=== PATIENT | male | born 1995 | race Caucasian/White ===

== ENCOUNTER → 2018-04-03 21:01 | Emergency (ER) | payer OTHER, BC ==
[~2018-04-03 21:01] MED LIST: Ibuprofen TAB* 600 MG PO ONE; Omeprazole CAP (NF) 20 MG CAP.DR PO ONE
--- NOTE | 2018-04-03 21:24 | ED ---
HPI Chest Pain - HPI Summary HPI Summary: This patient is a 22 year old M presenting to [facility] with a chief complaint of left side CP that began at 1999. The patient rates the stabbing pain 6/10 in severity and states it radiates into his arm and neck. Patient reports cough. Patient denies recent illness. Pt states that he has GERD. Pt states the episode tonight was accompanied by lightheadedness. Pt reports hx of anxiety. He does not smoke and his grandparents do have CAD. 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 He denies SI, drug use, and alcohol use. - History of Current Complaint Chief Complaint: EDGeneral Time Seen by Provider: 04/03/18 21:15 Hx Obtained From: Patient Onset/Duration: Still Present Time of Onset: 20:00 Timing: Constant Initial Severity: Moderate Current Severity: Moderate Pain Intensity: 6 Pain Scale Used: 0-10 Numeric Chest Pain Location: Left Anterior Chest Pain Radiates: Yes Chest Pain Radiates To:: Arm, Neck Character: Sharp/Stabbing Associated Signs and Symptoms: Positive: Other: - hx of GERD and anxiety - Allergy/Home Medications Allergies/Adverse Reactions: Allergies Allergy/AdvReac Type Severity Reaction Status Date / Time No Known Allergies Allergy Verified 04/03/18 21:10 PMH/Surg Hx/FS Hx/Imm Hx Cardiovascular History: Denies: Hx Auto Implanted Cardiovert Defib, Hx Cardiac Arrest, Hx Deep Vein Thrombosis, Hx Embolism, Hx Hypotension, Hx Myocardial Infarction Respiratory History: Denies: Hx Chronic Bronchitis, Hx Chronic Obstructive Pulmonary Disease (COPD ), Hx Cystic Fibrosis GI History: Reports: Hx Gastroesophageal Reflux Disease Musculoskeletal History: Denies: Hx Bursitis, Hx Osteoporosis Neurological History: Denies: Hx Dementia, Hx Developmental Delay, Hx Headaches, Hx Spinal Cord Injury Psychiatric History: Reports: Hx Anxiety Infectious Disease History: No Infectious Disease History: Denies: Traveled Outside the US in Last 30 Days - Family History Known Family History: Positive: Cardiac Disease - Social History Occupation: Student Lives: Dormitory/Roommates Alcohol Use: None Hx Substance Use: No Substance Use Type: Reports: None Hx Tobacco Use: No Smoking Status (MU): Never Smoked Tobacco Review of Systems Negative: Fever, Chills Negative: Erythema Negative: Nasal Discharge Positive: Chest Pain Positive: Cough. Negative: Shortness Of Breath Negative: Abdominal Pain, Vomiting, Nausea Negative: dysuria, hematuria Negative: Myalgia, Edema Negative: Rash Neurological: Other - light headed ness Psychological: Other - NEGATIVE SI Positive: Anxious All Other Systems Reviewed And Are Negative: Yes Physical Exam - Summary Physical Exam Summary: Constitutional: Well-developed, Well-nourished, Alert. (-) Distressed Skin: Warm, Dry HENT: Normocephalic; Atraumatic Eyes: Conjunctiva normal Neck: Musculoskeletal ROM normal neck. (-) JVD, (-) Stridor, (-) Tracheal deviation Cardio: Rhythm regular, rate normal, Heart sounds normal; Intact distal pulses; The pedal pulses are 2+ and symmetric. Radial pulses are 2+ and symmetric. (-) Murmur Pulmonary/Chest wall: Effort normal. (-) Respiratory distress, (-) Wheezes, (-) Rales Abd: Soft, (-) epigastric tenderness, (-) Distension, (-) Guarding, (-) Rebound Musculoskeletal: (-) Edema, Costochondral tenderness at 5-6th space on the left that exactly reproduces his pain Lymph: (-) Cervical adenopathy Neuro: Alert, Oriented x3 Psych: Mood and affect Normal Triage Information Reviewed: Yes Vital Signs On Initial Exam: Initial Vitals Temp Pulse Resp BP Pulse Ox 98.6 F 74 16 150/93 99 04/03/18 21:05 04/03/18 21:05 04/03/18 21:05 04/03/18 21:05 04/03/18 21:05 Vital Signs Reviewed: Yes Diagnostics - Vital Signs Vital Signs Temp Pulse Resp BP Pulse Ox 04/03/18 21:05 98.6 F 74 16 150/93 99 - Laboratory Lab Statement: Any lab studies that have been ordered have been reviewed, and results considered in the medical decision making process. - EKG 2113 Cardiac Rate: NL EKG Rhythm: Sinus Rhythm - at 76 BPM Summary of EKG Findings: No STEMI Chest Pain Course/Dx - Course Assessment/Plan: This patient is a 22 year old M presenting to [facility] with a chief complaint of left side CP that began at 1999. The patient rates the stabbing pain 6/10 in severity and states it radiates into his arm and neck. Patient reports cough. Patient denies recent illness. Pt states that he has GERD. Pt states the episode tonight was accompanied by lightheadedness. Pt reports hx of anxiety. He does not smoke and his grandparents do have CAD. 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 He denies SI, drug use, and alcohol use. CARLOS ALBERTO score is 0. I do not suspect PE. An EKG reveals NSR. In the ED course the patient was given motrin and prilosec. Patient will be discharged and follow up from [facility]. The patient is agreeable with this plan. - Diagnoses Provider Diagnoses: Costochondritis Discharge - Sign-Out/Discharge Documenting (check all that apply): Patient Departure - Discharge Plan Condition: Stable Disposition: HOME Prescriptions: Ibuprofen TAB* [Motrin TAB* 600 MG] 600 mg PO Q6H PRN #30 tab PRN Reason: Pain - Severe Pantoprazole Sodium [Protonix] 40 mg PO DAILY #14 tab Patient Education Materials: Costochondritis (ED) Referrals: [facility] - [place] RAS[facility] [, APPLICATION, OTHER] - Additional Instructions: RETURN TO THE EMERGENCY DEPARTMENT FOR CHANGING OR WORSENING SYMPTOMS - Attestation Statements Document Initiated by Scribe: Yes Documenting Scribe: Bryant Palomares Provider For Whom Scribe is Documenting (Include Credential): Homer Pineda MD Scribe Attestation: Bryant Leslie , scribed for Homer Pineda MD on 04/03/18 at 2128.
[2018-04-03 21:48] VITALS: BP 133/69
== END | disposition home or self-care (01) ==
LOC: ED 21:01
DX: M94.0 Chondrocostal junction syndrome [Tietze] (principal); R07.9 Chest pain, unspecified; K21.9 Gastro-esophageal reflux disease without esophagitis; F41.9 Anxiety disorder, unspecified
CPT/HCPCS: 93005; 99282; A9270-GY

== ENCOUNTER 2018-09-16 19:08 | Emergency (ER) | payer OTHER, BC ==
--- OUTSIDE RECORDS SUMMARY | 2018-09-16 19:54 | XMS REPORT | Continuity of Care Document ---
:1995 External Reference #:[id number] Author Name Eun Nichols PA-C Address [address] [place] [address] Care Team Providers Name Role Phone Arron Perez MD Care Team Information Facilities And Grounds Director Unavailable Arron Perez MD Primary Care Physician Unavailable Payers Date Identification Numbers Payment Provider Subscriber Policy Number: [id number] [facility] Marleni Guzman Group Number: [id number] [address] PayID: [id number] [place] [address] Policy Number: [id number] [facility] OTTO Marquis Guzman PayID: [id number] [address] [address] [place] [address] Problems Active Problems Provider Date Gastro-esophageal reflux disease with Eun Nichols PA-C Onset: 08/20 esophagitis Digestive symptom Eun Nichols PA-C Onset: 05/19/2018 Flatulence, eructation and gas pain Eun Nichols PA-C Onset: 2018 Esophageal dysphagia Eun Nichols PA-C Onset: 05/19/2018 Gastroesophageal reflux disease Eun Nichols PA-C Onset: 05/19/2018 Chest pain Eun Nichols PA-C Onset: 05/19/2018 Family History Date Family Member(s) Observation Comments Mother Colon Polyps Children None Siblings zero Social History Type Date Description Comments Sex Unknown Tobacco Use Start: Unknown Patient has never smoked Smoking Status Reviewed: 08/20/18 Patient has never smoked Allergies, Adverse Reactions, Alerts Description No Known Drug Allergies Medications Active Medications SIG Qnty Indications Ordering Provider Date Pantoprazole Sodium 1 tab PO bid 60tabs Koko Lujan DO 06/11/[address] History Medications Pantoprazole Sodium 1 by mouth daily 30tabs R07.89 Day 05/19/2018 - at least 30min MD Narcisa 06/11/2018 40mg Tablets before breakfast Pantoprazole Sodium Take 1 Tablet By Unknown - Mouth Every Day 05/19/[address] Vital Signs Date Vital Result Comment 08/20/2018 10:25am Height 75 inches 6'3" Weight 148.00 lb BMI (Body Mass Index) 18.5 kg/m2 05/19/2018 9:22am Height 75 inches 6'3" Weight 146.00 lb BP Systolic 134 mmHg BP Diastolic 88 mmHg Heart Rate 79 /min BMI (Body Mass Index) 18.2 kg/m2 Results Test Date Facility Test Result H/L Range Note Laboratory test 06/11/2018 [facility] SEE RESULT 1, 2 finding BELOW Laboratory test 06/11/2018 [facility] SEE RESULT 3, 4 finding Interface Order BELOW 1 [id number] SEE RESULT BELOW Name: MARLENI GUZMAN : [address]: Koko Lujan DO Acct: [id number] Unit: [id number] AGE: 22 Location: [facility] Re06/11/18 SEX: M Status: DEP REF SPEC: [id number] TARAH: 06/11/18-[address] [facility] [address]: Koko Lujan DO REQ: [id number] RECD: 06/11/18 STATUS: TROEY HURLEY DR: [facility] - MR _ SOURCE: GAS ANTRUM SPDES: ORDERED: Clotest COMMENTS: [id number] Procedure Result Reported Site Clotest Final 06/12/18739 [facility] Clotest Negative * ML - Main Lab . END OF REPORT DEPARTMENT OF PATHOLOGY, [address] [place] [address] Moise Sousa M.D. Director [facility] # [id number] 3 [id number] 4 SEE RESULT BELOW Name: MARLENI GUZMAN : [address]: Koko Lujan DO Acct: [id number] Unit: [id number] AGE: 22 Location: [facility] Re06/11/18 SEX: M Status: DEP REF SPEC: [id number] TARAH: 06/11/18-[address]: Koko Lujan DO REQ: [id number] RECD: 06/11/18-155 STATUS: IAM HURLEY DR: Arron Perez MD _ ORDERED: LEVEL 4/3 COMMENTS: [id number] FINAL DIAGNOSIS 1. Duodenum, biopsy: -- Benign small intestinal mucosa with no significant pathologic abnormalities. -- No evidence of villous blunting or increased intraepithelial lymphocytes. 2. Esophagus, distal, biopsy: -- Benign squamous and columnar-type mucosa with chronic inflammation. -- Intestinal metaplasia is absent. -- Dysplasia is absent. 3. Esophagus, mid, biopsy: -- Benign squamous mucosa with mild erosive changes. -- No evidence of eosinophilic esophagitis. CLINICAL HISTORY Dysphagia; gastroesophageal reflux disease PRE-OPERATIVE DIAGNOSIS Rule out eosinophilic esophagitis POST-OPERATIVE DIAGNOSIS EGD: esophagus - LA - A loose 2 cm hiatal hernia; biopsy; mid biopsy; gastric - normal, THOMAS test; duodenum - normal biopsy CONTINUED ON NEXT PAGE DEPARTMENT OF PATHOLOGY, [address] [place] [address] Moise Sousa M.D. Director [facility] # [id number] RUN DATE: 06/12/18 [facility] LAB LIVE PAGE 2 Patient: MARLENI GUZMAN [id number] (Continued) GROSS DESCRIPTION (Continued) GROSS DESCRIPTION 1. The specimen is received in formalin labeled, Duodenal Biopsies, and consists of two le-pink irregular soft tissue fragments measuring 0.4 x 0.3 x 0.1 cm and 0.7 by up to 0.2 x 0.1 cm which are submitted entirely in one cassette. 2. The specimen is received in formalin labeled, Biopsy Distal Esophagus, and consists of two le-pink irregular soft tissue fragments averaging 0.3 x 0.2 x 0.1 cm which are submitted entirely in one cassette. 3. The specimen is received in formalin labeled, Biopsy Mid Esophagus, and consists of two translucent le-white irregular soft tissue fragments averaging 0.5 x 0.2 x 0.1 cm which are submitted entirely in one cassette. Signed by and Reported on: Zena Cadet MD 06/12/18 1227 END OF REPORT DEPARTMENT OF PATHOLOGY, [address] [place] [address] Moise Sousa M.D. Director [facility] # [id number] Procedures Date Code Description Status 06/11/2018 94566 Moderate Sedation Services; Same Phys Each Additional 15 Completed Mins 06/11/2018 19391 Moderate Sedation Services; Same Phys Intl 15 Mins; PT >=5 Completed Years 06/11/2018 55635 EGD+Biopsy Single Or Multiple Completed Encounters Type Date Location Provider Dx Diagnosis Office Visit 05/19/2018 Gastroenterology Eun Hdz R07.89 Other chest pain 9:30a [facility] COSTA Nichols K21.9 Gastro-esophageal reflux disease without esophagitis R13.14 Dysphagia, pharyngoesophageal phase R14.0 Abdominal distension (gaseous) R19.4 Change in bowel habit Plan of Treatment Future Appointment(s):09/22/2018 10:00 am - Eun Nichols PA-C at [facility]08/20/2018 - DON Turner CK21.0 Gastro-esophageal reflux disease with esophagitis
--- NOTE | 2018-09-16 20:57 | ED ---
Upper Extremity Pain - HPI Summary HPI Summary: This patient is a 23 year old male presenting to [facility] with a chief complaint of left hand weakness since 7 hours ago. The patient has no other medical complaints. - History of Current Complaint Chief Complaint: EDGeneral Stated Complaint: WEAKNESS ON LT SIDE PER PT Time Seen by Provider: 09/16/18 20:51 Hx Obtained From: Patient Onset/Duration: Started Hours Ago Timing: Constant Pain Location: Hand Associated Signs & Symptoms: Positive: Weakness - Allergies/Home Medications Allergies/Adverse Reactions: Allergies Allergy/AdvReac Type Severity Reaction Status Date / Time No Known Allergies Allergy Verified 09/16/18 19:37 PMH/Surg Hx/FS Hx/Imm Hx Cardiovascular History: Denies: Hx Auto Implanted Cardiovert Defib, Hx Cardiac Arrest, Hx Deep Vein Thrombosis, Hx Embolism, Hx Hypotension, Hx Myocardial Infarction Respiratory History: Denies: Hx Chronic Bronchitis, Hx Chronic Obstructive Pulmonary Disease (COPD ), Hx Cystic Fibrosis GI History: Reports: Hx Gastroesophageal Reflux Disease Musculoskeletal History: Denies: Hx Bursitis, Hx Osteoporosis Neurological History: Denies: Hx Dementia, Hx Developmental Delay, Hx Headaches, Hx Spinal Cord Injury Psychiatric History: Reports: Hx Anxiety Infectious Disease History: No Infectious Disease History: Denies: Traveled Outside the [place] in Last 30 Days - Family History Known Family History: Positive: Cardiac Disease - Social History Alcohol Use: None Hx Substance Use: No Substance Use Type: Reports: None Hx Tobacco Use: No Smoking Status (MU): Never Smoked Tobacco Review of Systems Negative: Fever Positive: Weakness All Other Systems Reviewed And Are Negative: Yes Physical Exam - Summary Physical Exam Summary: VITAL SIGNS: Reviewed. GENERAL: Patient is a well-developed and nourished MALE who is lying comfortable in the stretcher. Patient is not in any acute respiratory distress. HEAD AND FACE: No signs of trauma. No ecchymosis, hematomas or skull depressions. No sinus tenderness. EYES: PERRLA, EOMI x 2, No injected conjunctiva, no nystagmus. EARS: Hearing grossly intact. Ear canals and tympanic membranes are within normal limits. MOUTH: Oropharynx within normal limits. NECK: Supple, trachea is midline, no adenopathy, no JVD, no carotid bruit, no c- spine tenderness, neck with full ROM CHEST: Symmetric, no tenderness at palpation LUNGS: Clear to auscultation bilaterally. No wheezing or crackles. CVS: Regular rate and rhythm, S1 and S2 present, no murmurs or gallops appreciated. ABDOMEN: Soft, non-tender. No signs of distention. No rebound no guarding, and no masses palpated. Bowel sounds are normal. EXTREMITIES: FROM in all major joints, no edema, no cyanosis or clubbing. Patients motorsensory strength intact. NEURO: Alert and oriented x 3. No acute neurological deficits. Speech is normal and follows commands. SKIN: Dry and warm Triage Information Reviewed: Yes Vital Signs On Initial Exam: Initial Vitals Temp Pulse Resp BP Pulse Ox 99.6 F 74 16 122/90 98 09/16/18 19:25 09/16/18 19:25 09/16/18 19:25 09/16/18 19:25 09/16/18 19:25 Vital Signs Reviewed: Yes Diagnostics - Vital Signs Vital Signs Temp Pulse Resp BP Pulse Ox 09/16/18 20:23 70 130/85 96 09/16/18 19:25 99.6 F 74 16 122/90 98 - Laboratory Lab Statement: Any lab studies that have been ordered have been reviewed, and results considered in the medical decision making process. Course/Dx - Course Course Of Treatment: This patient is a 23 year old male presenting to [facility] with a chief complaint of left hand weakness. Physical exam was unremarkable for neurovascular problems. A plan for discharge was discussed with the patient and he was agreeable with this plan. - Diagnoses Provider Diagnoses: Anxiety Discharge - Sign-Out/Discharge Documenting (check all that apply): Patient Departure - Discharge Patient Received Moderate/Deep Sedation with Procedure: No - Discharge Plan Condition: Stable Disposition: HOME Patient Education Materials: Anxiety (ED) Referrals: [facility] - [place] [Primary Care Provider] - Additional Instructions: Return to ED with any new or worsening symptoms. - Billing Disposition and Condition Condition: STABLE Disposition: Home - Attestation Statements Document Initiated by Emyibmattie: Yes Documenting Scribe: Guillaume Medina Provider For Whom Jenn is Documenting (Include Credential): Merrill Petersen MD Scribe Attestation: Guillaume Leslie scribed for Merrill Petersen MD on 09/17/18 at 0645. Scribe Documentation Reviewed: Yes Provider Attestation: The documentation as recorded by the Guillaume jose accurately reflects the service I personally performed and the decisions made by me, Merrill Petersen MD Status of Scribe Document: Viewed
[2018-09-16 21:40] VITALS: BP 140/90
== END 2018-09-16 21:39 | disposition home or self-care (01) ==
LOC: ED 19:08
DX: F41.9 Anxiety disorder, unspecified (principal)
CPT/HCPCS: 93005; 99282

== ENCOUNTER 2019-03-30 20:32 | Emergency (ER) | payer OTHER, BC ==
[2019-03-30] MEDS ORDERED: Ondansetron INJ* 2 MG/ML VIAL IV ONE (21:15)
[2019-03-30] MEDS ORDERED: Ketorolac INJ* 30 MG/ML 1 ML VIAL IV PUSH ONE (21:15)
[2019-03-30 21:31] LABS: Hematocrit 45 % (42-52); Hemoglobin 15.7 g/dL (14.0-18.0); Mean Corpuscular HGB Conc 35 g/dL (31-36); Mean Corpuscular Hemoglobin 31 pg (27-31); Mean Corpuscular Volume 87 fL (80-94); Mean Platelet Volume 8.7 fL (7.4-10.4); Platelet Count 215 10^3/uL (150-450); Red Blood Count 5.13 10^6 /uL (4.18-5.48); Red Cell Distribution Width 13 % (10-15)
--- NOTE | 2019-03-30 21:32 | ED ---
GI/ HPI - HPI Summary HPI Summary: 23 year old male presents with nausea vomiting diarrhea for the past day. he states that he has lower abdominal pain. Denies any different. No recent trauma. Has not been camping. No one around him is sick. Has no medical conditions. He has not been able to keep anything down. He denies any chest pain or shortness breath. No cough. No sore throat. Denies any other symptoms. has not been on antibiotic recently. no fevers. - History of Current Complaint Chief Complaint: EDNauseaVomitDiarrh Time Seen by Provider: 03/30/19 20:59 Stated Complaint: VOMITING/DIARRHEA PER PT Pain Intensity: 4 - Allergy/Home Medications Allergies/Adverse Reactions: Allergies Allergy/AdvReac Type Severity Reaction Status Date / Time No Known Allergies Allergy Verified 03/30/19 20:36 PMH/Surg Hx/FS Hx/Imm Hx Endocrine/Hematology History: Denies: Hx Anticoagulant Therapy Cardiovascular History: Denies: Hx Auto Implanted Cardiovert Defib, Hx Cardiac Arrest, Hx Deep Vein Thrombosis, Hx Embolism, Hx Hypotension, Hx Myocardial Infarction Respiratory History: Denies: Hx Chronic Bronchitis, Hx Chronic Obstructive Pulmonary Disease (COPD ), Hx Cystic Fibrosis GI History: Reports: Hx Gastroesophageal Reflux Disease Musculoskeletal History: Denies: Hx Bursitis, Hx Osteoporosis Neurological History: Denies: Hx Dementia, Hx Developmental Delay, Hx Headaches, Hx Spinal Cord Injury Psychiatric History: Reports: Hx Anxiety Infectious Disease History: No Infectious Disease History: Denies: Traveled Outside the [place] in Last 30 Days - Family History Known Family History: Positive: Cardiac Disease - Social History Alcohol Use: Weekly Hx Substance Use: No Substance Use Type: Reports: None Hx Tobacco Use: No Smoking Status (MU): Never Smoked Tobacco Review of Systems Negative: Fever Negative: Chest Pain Negative: Shortness Of Breath Positive: Abdominal Pain, Vomiting, Diarrhea, Nausea All Other Systems Reviewed And Are Negative: Yes Physical Exam Triage Information Reviewed: Yes Vital Signs On Initial Exam: Initial Vitals Temp Pulse Resp BP Pulse Ox 98.4 F 132 16 135/90 99 03/30/19 20:35 03/30/19 20:35 03/30/19 20:35 03/30/19 20:35 03/30/19 20:35 Vital Signs Reviewed: Yes Appearance: Positive: Well-Appearing Skin: Positive: Warm, Dry Head/Face: Positive: Normal Head/Face Inspection Eyes: Positive: Normal, Conjunctiva Clear ENT: Positive: Pharynx normal Respiratory/Lung Sounds: Positive: Clear to Auscultation, Breath Sounds Present Cardiovascular: Positive: Normal, RRR Abdomen Description: Positive: Soft, Other: - diffuse abd tenderness Bowel Sounds: Positive: Present Musculoskeletal: Positive: Normal Neurological: Positive: Normal Psychiatric: Positive: Normal Procedures - Sedation Patient Received Moderate/Deep Sedation with Procedure: No Diagnostics - Vital Signs Vital Signs Temp Pulse Resp BP Pulse Ox 03/30/19 20:35 98.4 F 132 16 135/90 99 - Laboratory Lab Results: Lab Results 03/30/19 Range/Units 21:25 WBC 17.0 H (3.5-10.8) 10^3/uL RBC 5.13 (4.18-5.48) 10^6 /uL Hgb 15.7 (14.0-18.0) g/dL Hct 45 (42-52) % MCV 87 (80-94) fL MCH 31 (27-31) pg MCHC 35 (31-36) g/dL RDW 13 (10-15) % Plt Count 215 (150-450) 10^3/uL MPV 8.7 (7.4-10.4) fL Neut % (Auto) Pending Lymph % (Auto) Pending [place] % (Auto) Pending Eos % (Auto) Pending Baso % (Auto) Pending Absolute Neuts (auto) Pending Absolute Lymphs (auto) Pending Absolute Monos (auto) Pending Absolute Eos (auto) Pending Absolute Basos (auto) Pending Absolute Nucleated RBC Pending Nucleated RBC % Pending Result Diagrams: 03/30/19 21:25 03/30/19 21:25 Lab Statement: Any lab studies that have been ordered have been reviewed, and results considered in the medical decision making process. Re-Evaluation - Re-Evaluation First Eval Re-Evaluation Time: 23:22 Change: Improved Comment: feels ready to go home GIGU Course/Dx - Course Course Of Treatment: 23 year old male presents with nausea vomiting diarrhea for the past day. he states that he has lower abdominal pain. Denies any different. No recent trauma. Has not been camping. No one around him is sick. Has no medical conditions. He has not been able to keep anything down. He denies any chest pain or shortness breath. No cough. No sore throat. On exam has diffuse abdominal tenderness. White blood count 17. lactic elevated. Gave fluids magnesium Toradol and Zofran and feeling better. c diff neg. will discharge with zofran. patient understand and agrees with plan. - Diagnoses Differential Diagnoses - Male: Gastroenteritis (Bacterial), Gastroenteritis ( Viral), Urinary Tract Infection Provider Diagnoses: Nausea vomiting and diarrhea, Abdominal pain Discharge ED - Sign-Out/Discharge Documenting (check all that apply): Patient Departure - Discharge Plan Condition: Good Disposition: HOME Prescriptions: Ondansetron ODT TAB* [Zofran 4 MG Odt TAB*] 4 mg PO Q6H PRN #12 tab.odt PRN Reason: Nausea Patient Education Materials: Gastroenteritis (DC) Referrals: [facility] - [facility] [Primary Care Provider] - Additional Instructions: Can take Zofran up to two tablets every 6 hours as needed for nausea Drink small amounts of fluid as tolerated When able to eat follow BRAT diet: Bananas, rice, applesauce, toast Take ibuprofen or Tylenol for pain as needed every 6 hours Follow up with primary within 5 days Return to ED if develop any new or worsening symptoms - Billing Disposition and Condition Condition: GOOD Disposition: Home
[2019-03-30] MEDS: Lactated Ringers 1000 ML Bag* 1,000 ML IV SCH ×2 (21:40→22:19)
[2019-03-30 21:48] LABS: Albumin 4.9 g/dL (3.2-5.2); C Reactive Protein 2.15 mg/L (<8.01); Calcium 9.7 mg/dL (8.6-10.3); EGFR African American 118.9 (>60); EGFR Non-African American 98.2 (>60); Globulin 2.5 g/dL (2-4); Magnesium 1.6 mg/dL (1.9-2.7); Potassium 3.8 mmol/L (3.5-5.0); Total Bilirubin 1.3 mg/dL (0.2-1.0); Total Protein 7.4 g/dL (6.4-8.9)
[2019-03-30] MEDS ORDERED: Magnesium Sulfate 2 GM IV* 2 GM/50 ML BAG IVPB ONE (21:55)
[2019-03-30 22:00] LABS: ABS Eosinophils 0.1 10^3/ul (0-0.6); ABS Lymphocytes 0.3 10^3/ul (1.0-4.8); ABS Monocytes 0.9 10^3/ul (0-0.8); ABS Neutrophils 15.8 10^3/ul (1.5-7.7); Eosinophil % 0.3 %; Lymphocyte % 1.7 %
[2019-03-30] MEDS ORDERED: O ndansetron ODT 4MG 5TAB PRPK 4 MG PAK PO ONE (23:20)
[2019-03-30 23:37] VITALS: BP 123/71
== END 2019-03-30 23:40 | disposition home or self-care (01) ==
LOC: ED 20:32
DX: R11.2 Nausea with vomiting, unspecified (principal); R19.7 Diarrhea, unspecified; R10.9 Unspecified abdominal pain; K21.9 Gastro-esophageal reflux disease without esophagitis; F41.9 Anxiety disorder, unspecified
CPT/HCPCS: 36415; 80053; 83605; 83690; 83735; 85025; 86140; 87045; 87046; 87493; 87899; 96361; 96365; 96375; 99283; A9270-GY; J1885; J2405; J3475

== ENCOUNTER 2019-04-11 05:09 | Emergency (ER) | payer OTHER, BC ==
[2019-04-11 06:03] VITALS: BP 124/85
--- NOTE | 2019-04-11 09:35 | ED ---
Headache - HPI Summary HPI Summary: This patient is a 23-year-old otherwise healthy male presenting to the ED with a headache which lasted approximately 2 minutes this morning. He states he awoke with right-sided headache which was on the top of his head, throbbing, lasting approximately 2 minutes and then went away. He did not have any pain associated with this. No associated nausea, vomiting, visual changes, confusion , tearing from the eye. States he is asymptomatic at this time. Hx of migraines. States this feels different. Did not take medication prior to arrival. Concern for aneurysm. Non smoker, rare alcohol use. - History Of Current Complaint Chief Complaint: EDHeadache Stated Complaint: HEADACHE PER PT Time Seen by Provider: 04/11/19 05:34 Hx Obtained From: Patient Onset/Duration: Sudden Onset Initially Headache Was: "Worst Headache Ever", Initial Pain Scale(0-10)= - 10 Currently Pain Is: Current Pain Scale(0-10)= - 0 Timing: Constant Character: Sharp Aggravating Factor: Nothing Allevating Factors: Nothing Associated Signs And Symptoms: Negative - Risk Factors SAH Risk Factors: Negative Meningitis Risk Factors: Negative SDH Risk Factors: Negative Temporal Arteritis Risk Factors: Negative - Allergies/Home Medications Allergies/Adverse Reactions: Allergies Allergy/AdvReac Type Severity Reaction Status Date / Time No Known Allergies Allergy Verified 04/11/19 05:14 Home Medications: Home Medications NK [No Home Medications Reported] 04/11/19 [History Confirmed 04/11/19] PMH/Surg Hx/FS Hx/Imm Hx Previously Healthy: Yes Endocrine/Hematology History: Denies: Hx Anticoagulant Therapy Cardiovascular History: Denies: Hx Auto Implanted Cardiovert Defib, Hx Cardiac Arrest, Hx Deep Vein Thrombosis, Hx Embolism, Hx Hypotension, Hx Myocardial Infarction Respiratory History: Denies: Hx Chronic Bronchitis, Hx Chronic Obstructive Pulmonary Disease (COPD ), Hx Cystic Fibrosis GI History: Reports: Hx Gastroesophageal Reflux Disease Musculoskeletal History: Denies: Hx Bursitis, Hx Osteoporosis Neurological History: Denies: Hx Dementia, Hx Developmental Delay, Hx Headaches, Hx Spinal Cord Injury Psychiatric History: Reports: Hx Anxiety - Immunization History Hx Pertussis Vaccination: No Immunizations Up to Date: Yes Infectious Disease History: No Infectious Disease History: Denies: Traveled Outside the [place] in Last 30 Days - Family History Known Family History: Positive: Cardiac Disease - Social History Occupation: Unemployed Lives: With Family Alcohol Use: Weekly Hx Substance Use: No Substance Use Type: Reports: None Hx Tobacco Use: No Smoking Status (MU): Never Smoked Tobacco Review of Systems Negative: Fever, Chills, Fatigue, Skin Diaphoresis Negative: Palpitations, Chest Pain Negative: Shortness Of Breath, Cough Genitourinary: Negative Positive: no symptoms reported, see HPI Negative: Arthralgia, Myalgia Positive: Headache All Other Systems Reviewed And Are Negative: Yes Physical Exam Triage Information Reviewed: Yes Vital Signs On Initial Exam: Initial Vitals Temp Pulse Resp BP Pulse Ox 98.3 F 65 16 135/100 100 04/11/19 05:10 04/11/19 05:10 04/11/19 05:10 04/11/19 05:10 04/11/19 05:10 Vital Signs Reviewed: Yes Appearance: Positive: Well-Appearing, Well-Nourished Skin: Positive: Warm, Skin Color Reflects Adequate Perfusion Head/Face: Positive: Normal Head/Face Inspection Eyes: Positive: EOMI, CARMEN, Conjunctiva Clear Neck: Positive: Supple, No Lymphadenopathy Respiratory/Lung Sounds: Positive: Clear to Auscultation, Breath Sounds Present Cardiovascular: Positive: Pulses are Symmetrical in both Upper and Lower Extremities Musculoskeletal: Positive: Normal, Strength/ROM Intact Neurological: Positive: Speech Normal Psychiatric: Positive: Normal, Affect/Mood Appropriate Procedures - Sedation Patient Received Moderate/Deep Sedation with Procedure: No Diagnostics - Vital Signs Vital Signs Temp Pulse Resp BP Pulse Ox 04/11/19 06:02 98.7 F 80 18 124/85 98 04/11/19 05:10 98.3 F 65 16 135/100 100 - Laboratory Lab Statement: Any lab studies that have been ordered have been reviewed, and results considered in the medical decision making process. Headache Course/Dx - Course Course Of Treatment: Dicsussed with patient regarding sypmtoms. Pt states he is asymptomatic at this time. Acute onset, worst of life JOHNSON concern for SAH. However, patient states sxs lasted 2 minutes, not associated with any other symptoms and now feels well. Denies visual changes. Unlikely SAH as sxs have dissipated. Return precautions given. Pt stable. - Diagnoses Differential Diagnosis/HQI/PQRI: Migraine Provider Diagnoses: Headache Discharge ED - Sign-Out/Discharge Documenting (check all that apply): Patient Departure - Discharge Plan Condition: Stable Disposition: HOME Referrals: [facility] Rodger RASCON [Primary Care Provider] - Additional Instructions: Tylenol 650mg if any symptoms persist However, return to the ED if you have a Headache that will not go away with tylenol - Billing Disposition and Condition Condition: STABLE Disposition: Home
== END 2019-04-11 06:02 | disposition home or self-care (01) ==
LOC: ED 05:09
DX: R51 Headache (principal); K21.9 Gastro-esophageal reflux disease without esophagitis
CPT/HCPCS: 99282